=== PATIENT | male | born 1940 | race Caucasian/White ===

== ENCOUNTER 2018-12-10 09:16 | Emergency (ER) | payer MEDICARE, MEDICAID ==
[~2018-12-10] VITALS: Ht 175.3 cm; Wt 79.4 kg
[~2018-12-10 09:16] MED LIST: CYCLOBENZAPRINE10 MG ORAL; IBUPROFEN600 MG ORAL
[2018-12-10] MEDS ORDERED: NKM (09:25)
[2018-12-10] MEDS ORDERED: Acetaminophen 500mg (ES) tab ORAL ONE (10:00)
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
[2018-12-10 10:22] VITALS: BP 128/76
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
[2018-12-10] MEDS ORDERED: TRAMADOL HCL50 MG ORAL (12:03)
[2018-12-10] MEDS ORDERED: TYLENOL325 MG ORAL (12:03)
[2018-12-10] MEDS ORDERED: ROBAXIN500 MG PO (12:03)
--- NOTE | 2018-12-10 12:04 | Diagnostic Imaging Report ---
Indication: Cough Technique: One view of the chest Comparison: none Findings: There is minimal atelectasis at the right lateral lung base. Lungs and pleural spaces are clear otherwise. Heart size is normal Impression: No acute process
[2018-12-10 12:12] VITALS: BP 128/76
--- NOTE | 2018-12-10 12:13 | NUR ---
ER DISCHARGE NOTE: Patient is cleared to be discharged per ERMD, pt is aox4, on room air, with stable vital signs. pt was given dc and prescription instructions, pt was able to verbalize understanding, pt is able to ambulate with steady gait. pt took all belongings.
--- NOTE | 2018-12-10 15:00 | Diagnostic Imaging Report ---
Indication: Left-sided neck pain Technique: 3 views of the cervical spine Comparison: none Findings: The odontoid view is suboptimal. Estimated at recalling the patient for repeat images, unsuccessful. There is degenerative narrowing at essentially all disc levels. No acute fractures. No dislocations. There is mild cervicothoracic scoliotic deformity. Otherwise normal bony alignment. No prevertebral soft tissue swelling. Impression: Limited exam, as described No acute bony trauma Degenerative changes
== END 2018-12-10 12:13 | disposition home or self-care (01) ==
LOC: EMR 10:13
DX: S16.1XXA Strain of muscle, fascia and tendon at neck level, initial encounter (principal); S80.11XA Contusion of right lower leg, initial encounter; Z88.8 Allergy status to other drugs, medicaments and biological substances; Z91.011 Allergy to milk products; Z91.010 Allergy to peanuts; Z91.013 Allergy to seafood; V43.52XA Car driver injured in collision with other type car in traffic accident, initial encounter; Y92.410 Unspecified street and highway as the place of occurrence of the external cause
CPT/HCPCS: 71045; 72040; 99284

== ENCOUNTER 2020-09-21 17:23 | Emergency (ER) | payer MEDICAID, MEDICARE, OTHER ==
[~2020-09-21] VITALS: Ht 175.3 cm; Wt 79.4 kg
[~2020-09-21 17:23] MED LIST changes: +NKM; +ROBAXIN500 MG PO; +TRAMADOL HCL50 MG ORAL; +TYLENOL325 MG ORAL
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
[2020-09-21 17:33] VITALS: BP 154/23
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
--- NOTE | 2020-09-21 17:56 | NUR ---
ED Nurse Note: Pt was taken to Xray.
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
--- NOTE | 2020-09-21 18:41 | Diagnostic Imaging Report ---
EXAM: XR Right Forearm, 2 Views CLINICAL HISTORY: PAIN TECHNIQUE: Frontal and lateral views of the right forearm. COMPARISON: No previous studies FINDINGS: Bones/joints: Osteopenia. No acute fracture, dislocation, or destructive processes noted. Soft tissues: The soft tissues are grossly unremarkable. IMPRESSION: 1. Unremarkable plain film evaluation of the right forearm. 2. If there is concern for osteomyelitis or cellulitis, magnetic resonance imaging should be performed.
--- NOTE | 2020-09-21 19:10 | NUR ---
ED Nurse Note: Recieved care from Gricelda
--- NOTE | 2020-09-21 19:13 | Diagnostic Imaging Report ---
EXAM: CT Head Without Intravenous Contrast CLINICAL HISTORY: PAIN TECHNIQUE: Axial computed tomography images of the head/brain without intravenous contrast. CTDI is 53.4 mGy and DLP is 1045.5 mGy-cm. One or more of the following dose reduction techniques were used: automated exposure control, adjustment of the mA and/or kV according to patient size, use of iterative reconstruction technique. COMPARISON: 12/11/2015. FINDINGS: Brain: Small vessel disease of aging. No abnormal extra-axial collection. No hemorrhage. Ventricles: There is prominence of the ventricular system, cortical sulci, basilar cisterns, compatible with age and atrophy. Bones/joints: Calvarium is within normal limits. No acute fracture. Soft tissues: Unremarkable. Vasculature: Atherosclerotic disease. Sinuses: Visualized sinuses are unremarkable. Mastoid air cells: Mastoid air cells are well pneumatized. IMPRESSION: 1. Age-related atrophy and small vessel disease of aging. 2. No acute intracranial pathology appeared 3. If there is concern for etiology such as early acute lacunar infarcts, magnetic resonance imaging of the brain with diffusion-weighted sequences should be performed.
--- NOTE | 2020-09-21 19:14 | Diagnostic Imaging Report ---
EXAM: CT Cervical Spine Without Intravenous Contrast CLINICAL HISTORY: PAIN TECHNIQUE: Axial computed tomography images of the cervical spine without intravenous contrast. CTDI is 20.1 mGy and DLP is 478.5 mGy-cm. One or more of the following dose reduction techniques were used: automated exposure control, adjustment of the mA and/or kV according to patient size, use of iterative reconstruction technique. COMPARISON: 12/11/2015. FINDINGS: Vertebrae: Cervical and visualized thoracic vertebral bodies are maintained in height. Dextroscoliosis. There is a normal relationship of C1 and C2. No acute fracture. Discs/spinal canal/neural foramina: Moderate to severe degenerative disc disease of the cervical spine. No spinal canal stenosis. Soft tissues: Paraspinal soft tissues are unremarkable. Lung apices: Mild COPD. Other findings: Scarring at the right apex. IMPRESSION: 1. Degenerative disc disease of the cervical spine. 2. No acute injury to the cervical spine is detected.
[2020-09-21] MEDS ORDERED: ROBAXIN-750750 MG PO (19:21)
[2020-09-21 19:30] VITALS: BP 145/59
--- NOTE | 2020-09-21 19:30 | NUR ---
ER DISCHARGE NOTE: Patient is cleared to be discharged per ERMD, pt is aox4, on room air, with stable vital signs. pt was given dc and prescription instructions, pt was able to verbalize understanding, pt id band removed without complications. pt is able to ambulate with steady gait. pt took all belongings.
== END 2020-09-21 19:30 | disposition home or self-care (01) ==
LOC: EMR 18:04
DX: S16.1XXA Strain of muscle, fascia and tendon at neck level, initial encounter (principal); R51.9 Headache, unspecified; S50.11XA Contusion of right forearm, initial encounter; V43.62XA Car passenger injured in collision with other type car in traffic accident, initial encounter; Y92.410 Unspecified street and highway as the place of occurrence of the external cause; Z91.018 Allergy to other foods; Z91.013 Allergy to seafood; Z91.011 Allergy to milk products
CPT/HCPCS: 70450; 72125; 99284